=== PATIENT | male | born 1975 | race Caucasian/White ===

== ENCOUNTER 2016-12-02 07:26 | Day surgery (SDC) | payer OTHER ==
[~2016-12-02] VITALS: Ht 188 cm; Wt 115.2 kg
[2016-12-02] MEDS ORDERED: PROPOFOL 60 ML ONE (08:37)
[2016-12-02 09:02] VITALS: Ht 188 cm; Wt 115.2 kg
[2016-12-02 09:04] VITALS: BP 131/82; PULSE 81; RESP 18
[2016-12-02] MEDS ORDERED: [UNRECOGNIZED DRUG - OTHER] (09:06)
[2016-12-02] MEDS ORDERED: CIPROFLOXACIN 400MG/D5W 200 ML ONE (09:11)
[2016-12-02 10:20] VITALS: BP 115/88; PULSE 80; RESP 18
--- NOTE | 2016-12-02 10:52 | GILP ---
DATE OF PROCEDURE: PROCEDURES: EGD and banding procedure, and colonoscopy with biopsy. INDICATION: A 41-year-old gentleman undergoing this procedure for microcytic hypochromic anemia. H e has cirrhosis of the liver. The purpose is to evaluate the upper GI tract and lower GI tract and find out the cause of his GI blood loss. The risks of the procedure, related and unrelated complica tions, anesthetic risks, and alternatives were discussed and informed consent was obtained. DESCRIPTION OF PROCEDURE #1: The patient was brought to the GI lab, sedated by Dr. Strange, [facility]. The scope was passed with much ease into the esophagus. He had grade IV varicose veins. Two to 3 columns of such veins were identified. The stomach mucosa revealed erosive gastritis. The du odenal mucosa revealed moderate duodenitis. The second part, including the ampulla, was within norm al limits. Retroversion was done in the stomach. No gastric varicose veins were identified. The s cope was removed. The shooter was attached to the tip of the scope and the scope was reintrodu leighann and 4 bands were successfully deployed until no varicose vein was visualized. The scope was rem wayne, with good patient tolerance. IMPRESSION 1. Grade IV varicose veins, successfully banded. Four bands were used. 2. Erosive gastritis. 3. Moderate duodenitis. PLAN: To start the patient on a PPI. Will repeat esophagogastroduodenoscopy after 6 months. PROCEDURE #2: COLONOSCOPY: The patient was turned around and the scope was passed with much ease into the rectum. He had proctitis which was of a moderate degree. The scope was advanced further down all the way into the cecum. There was a polyp, diminutive, identified in the cecum. Managed to remove it with jumbo biopsy forceps. The rest of the colon and terminal ileum appeared normal. No gross lesion wa s identified. He had hemorrhoids also. IMPRESSION: 1. Proctitis. 2. Hemorrhoids. 3. Diminutive polyp in the cecum, successfully removed. 4. Normal terminal ileum up to 2 feet. 5. Clarity was good and cleanliness was adequate. PLAN: To review histopathology of the polyp. The patient needs a repeat colonoscopy after 5 years. If he has rectal bleeding, which he did not tell me, then we may use APC to band those blood vesse ls in the rectum. Dictated By: QUINCY PEÑA/BROCK Conf#: [id number] DID#: [id number] CC: Kurt Calderón;*EndCC*
== END 2016-12-02 10:21 | disposition home or self-care (01) ==
LOC: GIL 07:26
PROVIDERS: ATTEND Internal Medicine Gastroenterology
DX: D12.0 Benign neoplasm of cecum (principal); K62.89 Other specified diseases of anus and rectum; K64.9 Unspecified hemorrhoids; K29.80 Duodenitis without bleeding; I85.00 Esophageal varices without bleeding; I10 Essential (primary) hypertension
CPT/HCPCS: 43244; 45380; 88305; J0744; Z7610

== ENCOUNTER 2018-02-09 06:39 | Day surgery (SDC) | END 2018-02-09 13:00 | disposition home or self-care (01) ==